=== PATIENT | male | born 1950 | race Asian ===

== ENCOUNTER 2019-11-15 06:35 | Day surgery (SDC) | payer OTHER, MEDICARE ==
[2019-11-15] MEDS ORDERED: MIDAZOLAM HCL 5 MG/5 ML VIAL ONE (07:52)
[2019-11-15] MEDS ORDERED: MEPERIDINE HCL/PF 100 MG/ML AMP ONE (07:53)
[2019-11-15] MEDS ORDERED: SIMETHICONE 40 MG/0.6 ML ML ONE (07:53)
[2019-11-15 08:00] VITALS: BP_SYST 123
[2019-11-15] MEDS: MIDAZOLAM HCL 5 MG/5 ML VIAL ONE ×2 (08:25→08:31)
== END 2019-11-15 10:15 | disposition home or self-care (01) ==
LOC: SDS 06:35 → SMU 06:35 → SDS 10:15
PROVIDERS: ATTEND Internal Medicine Gastroenterology
DX: Z12.11 Encounter for screening for malignant neoplasm of colon (principal); K63.5 Polyp of colon; K57.30 Diverticulosis of large intestine without perforation or abscess without bleeding; K64.8 Other hemorrhoids; K52.9 Noninfective gastroenteritis and colitis, unspecified; I10 Essential (primary) hypertension; E78.5 Hyperlipidemia, unspecified; Z86.010 Personal history of colon polyps; Z79.899 Other long term (current) drug therapy
CPT/HCPCS: 45380; 88305; 99152; 99153; G0378; J2175; J2250; J7030